=== PATIENT | male | born 1960 | race Two or more races ===

== ENCOUNTER → 2020-07-19 08:08 | Outpatient (BNVA) | payer BC, SELFPAY | PROVIDERS: PCP Internal Medicine; Visit Provider Surgery | DX: Z76.89 Persons encountering health services in other specified circumstances (principal) ==

== ENCOUNTER → 2022-01-02 15:30 | Outpatient (BNVA) | payer BC, SELFPAY | PROVIDERS: PCP Internal Medicine; Referring Provider Internal Medicine; Visit Provider Internal Medicine Cardiovascular Disease | DX: I48.0 Paroxysmal atrial fibrillation (principal); R06.00 Dyspnea, unspecified; E66.01 Morbid (severe) obesity due to excess calories | CPT/HCPCS: 93005 ==

== ENCOUNTER → 2022-01-18 07:35 | Outpatient (REF) | payer BC, SELFPAY ==
--- NOTE | 2022-01-18 07:50 | CA_ITS ---
Transthoracic Echocardiogram Patient (Last, First, Middle): Matias Gunderson E Gender: Male Date of : 1960 Age: 61 Procedure Date: 01/18/2022 Procedure Type: Transthoracic Echocardiogram Location: OP Height: 185.42 cm Weight: 212.28 kg BSA: 3.09 m2 Heart Rate: bpm BP: 138 / 82 mmHg Immunohematologist: Referring MD: Sam Crowe MD Bundle Tier And Labeler: Sam Crowe MD Symptoms: I48.0 - Paroxysmal atrial fibrillation Study Quality: Fair ECG Rhythm: Sinus Conclusions: - Technically limited study. - Normal left ventricular cavity size. There is mildly increased left ventricular wall thickness. The left ventricular systolic function is low normal. The visually estimated ejection fraction is between 50-55%. - RV visualized in limited views and appears to have normal size and function. - The left atrium is mildly dilated. - There is mild dilatation of the ascending aorta measuring 4.00 cm. Findings Procedure Information Contrast agent, definity, is being given per protocol without apparent complications. Left Ventricle Normal left ventricular cavity size. There is mildly increased left ventricular wall thickness. The left ventricular systolic function is low normal. The visually estimated ejection fraction is between 50-55%. There is no evidence of regional wall motion abnormalities. Diastolic function is indeterminate on the basis of available data. Right Ventricle RV visualized in limited views and appears to have normal size and function. Atria The left atrium is mildly dilated. Aortic Valve The aortic valve was not well visualized. There is no aortic valve stenosis. There is no aortic valve regurgitation. Mitral Valve Likely normal mitral valve structure and function. There is no mitral valve regurgitation. There is no mitral valve stenosis. Pulmonic Valve The pulmonic valve was not well visualized. Tricuspid Valve The tricuspid valve was not well visualized. Tricuspid regurgitation envelope is inadequate for calculation of right ventricular systolic pressure. Moderately elevated right atrial pressure. Great Vessels The pulmonary artery was not well visualized. There is mild dilatation of the ascending aorta measuring 4.00 cm. Venous The inferior vena cava is dilated and collapses less than 50% with inspiration. Pericardium/Pleural There is no evidence of pericardial effusion. Measurements 2D Linear Measurements IVSd: 1.38 0.6-0.9/0.6-1.0 cm LVIDd: 4.33 3.9-5.3/4.2-5.9 cm LVIDd Index: 1.40 2.4-3.2/2.2-3.1 cm/m2 LVIDs: 2.67 2.0-3.6 cm LVPWd: 1.38 0.7-1.1 cm Ao Root: 4.10 2.1-3.5 cm LA Diam: 6.10 2.7-3.8/3.0-4.0 cm LAIDs Index: 1.97 1.5-2.3 cm/m2 LV Mass: 286.23 67-162/88-224 g LV Mass Index: 92.63 43-95/49-115 g/m2 LVOT Diam: 2.60 3.0+(-)1.3 cm 2D Systolic Function EF 4C: 42.60 >55% EF 2C: 11.10 >55% Mitral Valve MV Pk E: 0.77 MV Decel Time: 103.00 E'Lateral: 8.92 E'Medial: 7.83 E/E' Med: 9.80 E/E' Lat: 8.60 PHT: 30.00 MVA PHT: 7.33 Decel Tompkins: 7.49 Aortic Valve AoV Pk Jet: 1.15 AoV Mn Jet: 0.84 AoV VTI: 0.20 AoV Pk Grad: 5.00 Aov Mn Grad: 3.00 BRIAN Cont.VTI: 3.35 LVOT LVOT Pk Jet: 0.86 LVOT Mn Jet: 0.62 LVOT VTI: 0.13 LVOT Pk Grad: 3.00 LVOT Mn Grad: 2.00 LVOT Diam: 2.60 LVOT Area: 5.31 Diastolic Function MV Pk E: 0.77 E'Medial: 7.83 E/E' Med: 9.80 E' Laterial: 8.92 E/E' Lat: 8.60 Tricuspid Valve TR Pk Jet: 2.14 TR Pk Grad: 18.00 Great Vessels Aorta Ao Root-2D: 4.10 2.0-3.7 cm Ao Asc: 4.00 2.1-3.4 cm Pulmonary Valve PV Pk Jet: 0.94 Peak PV Grad: 4.00 Updated in Other Vendor System with Status of Final Sam Crowe MD electronically signed on 01/21/2022 2:55:50 PM with status of Final
== END ==
LOC: HO.CARD 07:35
PROVIDERS: PCP Internal Medicine; Visit Provider Internal Medicine Cardiovascular Disease
DX: I48.0 Paroxysmal atrial fibrillation (principal)
CPT/HCPCS: 93306; Q9957

== ENCOUNTER → 2022-04-22 14:20 | Outpatient (BNVA) | payer BC, SELFPAY | PROVIDERS: PCP Internal Medicine; Referring Provider Internal Medicine; Visit Provider Internal Medicine Cardiovascular Disease | DX: R06.00 Dyspnea, unspecified (principal); I48.0 Paroxysmal atrial fibrillation | CPT/HCPCS: 93005 ==

== ENCOUNTER 2022-05-03 11:51 | Outpatient (REF) | payer BC, SELFPAY ==
[2022-05-03 14:01] LABS: Anion Gap 16 (12-20); Blood Urea Nitrogen 14 mg/dL (9-16); Calcium 9.5 mg/dL (8.4-10.2); Carbon Dioxide 27 mmol/L (22-29); Chloride 103 mmol/L (96-108); Estimated Glomerular Filt Rate > 60; Glucose Random 122 mg/dL (60-115); Potassium 4.9 mmol/L (3.3-5.1); Sodium 141 mmol/L (135-145)
[2022-05-03 14:18] LABS: Appearance Urine Turbid; Color Urine Dark Yellow; Glucose Urine UA Negative (Negative); Leukocyte Esterase Urine Small (1+) (Negative); Nitrite Urine Positive (Negative); PH 5.5 (5.0-9.0); Specific Gravity - Urine 1.025 (1.005-1.025); Urine Blood Large (3+) (Negative); Urine Ketones Negative (Negative); Urine Protein 100 (2+) mg/dL (Neg-Trace)
[2022-05-03 14:23] LABS: Bacteria Urine 1+ (None Seen); Hyaline Casts Urine 0-2 /LPF (0-2); RBC Urine >20 /HPF (0-2); Squamous Epithelial Cell Urine 0-2 /HPF (0-2)
[2022-05-03 14:31] LABS: UACC Culture Trigger NO
== END 2022-05-03 11:52 | disposition home or self-care (01) ==
LOC: HO.HMGCLDS 11:51
PROVIDERS: PCP Internal Medicine; Visit Provider Internal Medicine Cardiovascular Disease
DX: R39.9 Unspecified symptoms and signs involving the genitourinary system (principal); I48.0 Paroxysmal atrial fibrillation
CPT/HCPCS: 36415; 80048; 81001

== ENCOUNTER 2022-06-10 11:00 | Day surgery (SDC) | payer BC, SELFPAY ==
[2022-06-04 15:31] VITALS: BMI 61.4
--- NOTE | 2022-06-07 10:24 | HO.ANESPROP2 ---
Documented by User: Farnaz Gudino NP 06/07/22 10:26 HPI - Anesthesia Eval Consult details Narrative: 62yo M for Cardioversion Eliquis for afib PMFSH Active Problems Active Problems: All Active Problems (Updated 06/04/22 @ 15:33 by Dulce Sanchez RN) PAF (paroxysmal atrial fibrillation) (Acute) Dyspnea (Acute) Urinary anomaly (Acute) UTI symptoms (Acute) Morbid obesity (Acute) Past Medical History Medical History Former cigarette smoker Morbid obesity PAF (paroxysmal atrial fibrillation) Family History Family History Father Prostate cancer Heart problem Mother Melanoma Sister No problems noted. Sister No problems noted. Daughter No problems noted. Daughter No problems noted. Surgical History Surgical History History of back surgery Hx of colonoscopy Hx of varicose vein ligation and stripping Social History Social History Alcohol intake: current Alcohol intake frequency: a few times a week Alcohol type: hard liquor Patient Tobacco Use Status: Former Tobacco user Quit Date: 2011 Years Smoked: 30+/- Use of substances other than those prescribed or required for medical reasons: No Are you DNR?: No Advance Directives: No Advance Directives Information Provided: Yes Advance Directives on File: No Meds Allergies Allergy/AdvReac Type Severity Reaction Status Date / Time varenicline [From Chantix] Allergy Severe suicidal Verified 06/04/22 15:31 thoughts Home Medications Medication Instructions Recorded Confirmed Last Taken Type metoprolol succinate 50 mg 50 mg PO DAILY 01/02/22 06/04/22 Unknown History tablet,extended release 24 hr valsartan 160 mg tablet 160 mg PO DAILY 01/02/22 06/04/22 Unknown History Exam Exam Date and Time: June 07, 2022 1024 Height,Weight and Vital Signs: Height 6 ft 1 in Weight 211.4 kg Pertinent Lab Results Pertinent Lab Results: Laboratory Tests 05/03/22 11:55 Sodium 141 Potassium 4.9 Chloride 103 Carbon Dioxide 27 BUN 14 Creatinine 0.94 Narrative Narrative: EKG 03/2022 Atrial fibrillation 104 beats per minute, nonspecific T-wave changes, QTC interval 452 milliseconds ECHO 12/2021 Conclusions: - ? Technically limited study. ? - Normal left ventricular cavity size.? There is mildly increased left ventricular wall thickness.? The left ventricular systolic? function is low normal.? The visually estimated ejection fraction is between 50-55%. ? - RV visualized in limited views and appears to have normal size and function.? - The left atrium is mildly dilated. ? - There is mild dilatation of the ascending aorta measuring 4.00 cm.? Assessment and Plan Assessment Anesthesia Assessment: Chart Reviewed Documented by User: Henry Clark MD 06/10/22 12:11 [facility] Past Medical History Medical History Former cigarette smoker Morbid obesity PAF (paroxysmal atrial fibrillation) Family History Family History Father Prostate cancer Heart problem Mother Melanoma Sister No problems noted. Sister No problems noted. Daughter No problems noted. Daughter No problems noted. Family history of problems with anesthesia: No Surgical History Surgical History History of back surgery Hx of colonoscopy Hx of varicose vein ligation and stripping History of Problems with Anesthesia: No Social History Social History Alcohol intake: current Alcohol intake frequency: a few times a week Alcohol type: hard liquor Patient Tobacco Use Status: Former Tobacco user Quit Date: 2011 Years Smoked: 30+/- Use of substances other than those prescribed or required for medical reasons: No Are you DNR?: No Advance Directives: No Advance Directives Information Provided: Yes Advance Directives on File: No Meds Allergies Allergy/AdvReac Type Severity Reaction Status Date / Time varenicline [From Chantix] Allergy Severe suicidal Verified 06/04/22 15:31 thoughts Home Medications Medication Instructions Recorded Confirmed Last Taken Type metoprolol succinate 50 mg 50 mg PO DAILY 01/02/22 06/04/22 Unknown History tablet,extended release 24 hr valsartan 160 mg tablet 160 mg PO DAILY 01/02/22 06/04/22 Unknown History Exam Airway Mallampati Class: III TM Dist: >3cm Neck ROM: Full Loose/Missing/Broken Teeth: No Heart: rrr Lungs: clear Assessment and Plan Final Anesthetic Review Family History of Problems with Anesthesia: No History of Problems with Anesthesia: No NPO: Yes ASA Class: III Final Preanesthetic Review: No Changes in Pt Med Stat, Meds/Allgs Chart Reviewed, Consent Obtained/Reviewed and Anes Risks/Benef Reviewed Patient Risk: High Procedure Risk: Low Anesthetic Plan Anesthetic Plan: MAC: Disposition: Standard PACU
--- NOTE | 2022-06-10 | ECG_ITS ---
Test Reason : s/p cardioversion Blood Pressure : / mmHG Vent. Rate : 083 BPM Atrial Rate : 083 BPM P-R Int : 166 ms QRS Dur : 086 ms QT Int : 386 ms P-R-T Axes : 042 -21 033 degrees QTc Int : 453 ms Poor data quality, interpretation may be adversely affected Normal sinus rhythm Nonspecific ST abnormality Abnormal ECG When compared with ECG of 15-MAR-2009 09:35, No significant change was found Referred By: Sam Crowe Electronically Signed By:
[2022-06-10 11:13] VITALS: BP 129/80; PULSE 113; RESP 18; TEMP 36.6; O2SAT 96
[2022-06-10] MEDS: Lactated Ringers 1,000 ML 100 ML IVCONT (11:32)
[2022-06-10 12:34] VITALS: BP 124/80; PULSE 84; RESP 21; TEMP 37.3; O2SAT 98
[2022-06-10 12:39] VITALS: BP 110/60; PULSE 82; RESP 18; O2SAT 98
[2022-06-10 12:44] VITALS: BP 108/68; PULSE 81; RESP 18; O2SAT 95
--- NOTE | 2022-06-10 12:48 | P.PNCAR_ITS ---
Cardioversion Procedure Note Cardioversion Date of Procedure: 06/10/22 Ordering Provider: Sam Crowe Performing Provider: Sam Crowe Indication for Procedure: Afib Performed with Transesophageal Echo: No History: 62 male with Afib and WORKMAN. Here for cardioversion. Consent: Verbal and Written consent was obtained from the patient before starting. The patient was made aware of the risk of aspiration, failure and stroke. Procedure: After consent obtained, defib pads were attached and the patient was sedated by the anesthesia team. Once adequate sedation achieved, 200 J synchronized c ardioversion was performed. Patient converted to sinus rhythm. EKG was done for documentation. Complications: None Impression: Successful cardioversion Recommendations: Continue Apixaban. Continue Metoprolol. Stop the Digoxin. Adding 100 mg BID Flecainide. 7 Day Holter monitor.
[2022-06-10 12:49] VITALS: BP 105/69; PULSE 81; RESP 18; O2SAT 94
[2022-06-10 13:04] VITALS: BP 110/75; PULSE 74; RESP 18; TEMP 37; O2SAT 96
== END 2022-06-10 13:20 | disposition home or self-care (01) ==
PROVIDERS: PCP Internal Medicine; Visit Provider Internal Medicine Cardiovascular Disease
PROC: 5A2204Z Restoration of Cardiac Rhythm, Single (ICD-10-PCS; principal; 2022-06-10 12:00)
DX: I48.0 Paroxysmal atrial fibrillation (principal); R06.00 Dyspnea, unspecified; E66.01 Morbid (severe) obesity due to excess calories; Z68.44 Body mass index [BMI] 60.0-69.9, adult; Z79.899 Other long term (current) drug therapy; Z88.8 Allergy status to other drugs, medicaments and biological substances; Z87.891 Personal history of nicotine dependence
CPT/HCPCS: 92960; 93005

== ENCOUNTER 2022-06-13 12:39 | Outpatient (REF) | payer BC, SELFPAY ==
[2022-06-13 14:05] LABS: Appearance Urine Clear; Color Urine Dark Yellow; Glucose Urine UA Negative (Negative); Leukocyte Esterase Urine Negative (Negative); Nitrite Urine Negative (Negative); PH 5.5 (5.0-9.0); UMIC TRIGGER UACC YES; Urine Blood Moderate (2+) (Negative); Urine Ketones Negative (Negative); Urine Protein Negative (Neg-Trace)
[2022-06-13 14:38] LABS: Bacteria Urine None Seen (None Seen); Hyaline Casts Urine 0-2 /LPF (0-2); RBC Urine >20 /HPF (0-2); Squamous Epithelial Cell Urine 0-2 /HPF (0-2); WBC Urine 0-5 /HPF (0-5)
== END 2022-06-13 12:40 | disposition home or self-care (01) ==
LOC: HO.HMGCLDS 12:39
PROVIDERS: PCP Internal Medicine; Visit Provider Internal Medicine
DX: R30.0 Dysuria (principal)
CPT/HCPCS: 81001; 81003

== ENCOUNTER 2022-06-24 11:35 | Outpatient (REF) | payer BC, SELFPAY ==
[2022-06-24 13:54] LABS: MANUAL DIFF FLAG NO
[2022-06-24 14:04] LABS: Basophils Absolute Auto 0.1 X10*3/uL (0.0-0.2); Basophils Percent Auto 1.1 % (0-2); Eosinophils Absolute Auto 0.6 X10*3/uL (0.0-0.4); Eosinophils Percent Auto 5.8 % (0-4); Hematocrit 46.9 % (42.0-52.0); Hemoglobin 16.1 g/dl (14.0-18.0); Imm Gran Abs Auto 0.03 X10*3/uL (0.00-0.03); Imm Gran Pct Auto 0.3 % (0.0-0.4); Lymphocytes Absolute Auto 1.1 X10*3/uL (1.2-4.9); Lymphocytes Percent Auto 11.7 % (20-40); Mean Corpuscular HGB Conc 34.3 g/dl (31.0-36.0); Mean Corpuscular Hemoglobin 33.5 pg (27.0-33.0); Mean Corpuscular Volume 97.7 fL (80.0-98.0); Mean Platelet Volume 11.4 fL (9.4-12.4); Monocytes Absolute Auto 0.5 X10*3/uL (0.1-1.2); Monocytes Percent Auto 5.5 % (2-11); Neutrophils Absolute Auto 7.2 x10*3/uL (2.0-8.3); Neutrophils Percent Auto 75.6 % (45-73); Platelet Count 296 X10*3/uL (160-400); Red Cell Distribution Width 14.3 % (11.0-16.0); White Blood Count 9.5 X10*3/uL (4.8-10.8)
[2022-06-24 14:19] LABS: Alanine Aminotransferase 41 U/L (0-40); Albumin Level 4.1 g/dL (3.5-5.0); Alkaline Phosphatase 103 U/L (39-117); Anion Gap 13 (12-20); Aspartate Amino Transferase 26 U/L (5-37); Bilirubin Total 1.3 mg/dL (0.0-1.0); Blood Urea Nitrogen 17 mg/dL (9-16); Calcium 9.8 mg/dL (8.4-10.2); Carbon Dioxide 28 mmol/L (22-29); Chloride 102 mmol/L (96-108); Estimated Average Glucose 103 mg/dL; Estimated Glomerular Filt Rate > 60; Glucose Fasting 121 mg/dL (60-99); Hemoglobin A1c % 5.2 %; Potassium 4.6 mmol/L (3.3-5.1); Sodium 138 mmol/L (135-145); Total Protein 6.9 g/dL (6.5-8.0)
[2022-06-24 14:40] LABS: Cortisol Random 7.7 ug/dL
== END 2022-06-24 11:36 | disposition home or self-care (01) ==
LOC: HO.HMGCLDS 11:35
PROVIDERS: PCP Internal Medicine; Visit Provider Internal Medicine
DX: I10 Essential (primary) hypertension (principal); E66.01 Morbid (severe) obesity due to excess calories; R73.01 Impaired fasting glucose
CPT/HCPCS: 36415; 80053; 82533; 83036; 83735; 85025

== ENCOUNTER → 2022-07-29 10:57 | Outpatient (REF) | payer BC, SELFPAY ==
--- NOTE | 2022-07-29 11:03 | HM_ITS ---
Conclusion: 1. Patient was monitored for total period of 7 days 2. Baseline was normal sinus rhythm with average heart of 69 beats per minute 3. No significant pauses or bradycardia noted 4. Total of 3208 PACs accounting for 0.5% total beats account for occasional PACs 5. Two 4 beat runs of SVT, fastest at 147 beats per minute 6. No patient reported events MTDD
== END ==
LOC: HO.CARD 10:57
PROVIDERS: PCP Internal Medicine; Visit Provider Internal Medicine Cardiovascular Disease
DX: I48.0 Paroxysmal atrial fibrillation (principal)
CPT/HCPCS: 93242

== ENCOUNTER → 2022-08-05 13:06 | Outpatient (BNVA) | payer BC, SELFPAY | PROVIDERS: PCP Internal Medicine; Visit Provider Internal Medicine Cardiovascular Disease | DX: I48.0 Paroxysmal atrial fibrillation (principal) | CPT/HCPCS: 93005 ==

== ENCOUNTER → 2022-12-02 13:37 | Outpatient (BNVA) | payer BC, SELFPAY | PROVIDERS: PCP Internal Medicine; Referring Provider Internal Medicine; Visit Provider Internal Medicine Cardiovascular Disease | DX: I48.0 Paroxysmal atrial fibrillation (principal) | CPT/HCPCS: 93005 ==

== ENCOUNTER 2023-06-09 13:30 | Outpatient (AMB) | payer BC, SELFPAY ==
[2023-06-09 13:37] VITALS: BP 138/84; PULSE 76; BMI 62.2
--- NOTE | 2023-06-09 13:37 | A.OFFVIS_ITS ---
Intake Vital Signs 06/09/23 13:37 Height 6 ft 1 in Weight 471 lb 12.627 oz BMI 62.2 BP 138/84 Blood Pressure Location Lt brachial Position Sitting Pulse 76 Intake Visit Reasons: 6 mth fu Intake Note: 6 month follow-up has been in [facility] a few times for DVT Campus Recruiting Coordinator Required: No Allergies varenicline [From Chantix] Allergy (Severe, Verified 12/02/22 13:44) suicidal thoughts Medication List - Last Reconciled 06/09/23 by Sam Crowe MD fondaparinux mg subcut metoprolol succinate ER 50 mg PO DAILY valsartan 160 mg PO DAILY HPI HPI Comments History of Present Illness Details 63-year-old gentleman with hypertension and morbid obesity here for follow-up. He underwent cardioversion in May for paroxysmal atrial fibrillation. He has morbid obesity and has WORKMAN which is mostly due to obesity. Post cardioversion he has minimal change in dyspnea. He is off the Apixaban and Flecainide at this stage. ECG in the office is showing sinus rhythm. He is planning to see weight management program. 06/09/23: He returns for follow-up. I n February 2023 he had left lower extremity redness and swelling. He went to the emergency department because he has subsequently developed shortness of breath. He was diagnosed with bilateral pulmonary emboli. He was taking apixaban at that time. He said he had workup done at [facility] and also saw Hematology and was changed to fondaparinux. [facility] Medical History (Updated 06/09/23 @ 19:08 by Sam Crowe MD) History of cardioversion Former cigarette smoker PAF (paroxysmal atrial fibrillation) Morbid obesity Surgical History History of back surgery Hx of colonoscopy Hx of varicose vein ligation and stripping Family History Father Prostate cancer Heart problem Mother Melanoma Sister No problems noted. Sister No problems noted. Daughter No problems noted. Daughter No problems noted. Social History Alcohol intake: current Alcohol intake frequency: a few times a week Alcohol type: hard liquor Patient Tobacco Use Status: Former Tobacco user Quit Date: 2012 Years Smoked: 30+/- Review of Systems Const Denies chills, Denies fatigue, Denies fever(s), Denies frequent falls, Denies weakness, Denies weight gain and Denies weight loss ENT Denies dizziness Card Denies chest pain, Denies leg edema, Denies lightheadedness, Denies palpitations, Denies dyspnea, Denies dyspnea on exertion, Denies orthopnea and Denies other (loss of consciousness) Resp Denies cough, Denies dyspnea and Denies dyspnea on exertion GI Denies hematochezia and Denies change in stool character Musc Denies abnormal gait, Denies muscle weakness, Denies numbness, Denies radiating pain into limb and Denies tingling Neuro Denies abnormal gait, Denies dizziness, Denies frequent falls, Denies numbness, Denies tingling and Denies weakness Endo Denies fatigue and Denies palpitations Physical Exam Vital Signs: Last Vital Signs Pulse 76 06/09/23 13:37 BP 138/84 06/09/23 13:37 BMI result Body Mass Index 62.2 GENERAL APPEARANCE: in no acute distress, pleasant. NECK: no carotid bruit. SKIN: no suspicious lesions, warm and dry. HEART: no murmurs, regular rate and rhythm. LUNGS: clear to auscultation bilaterally. ABDOMEN: soft, nontender. EXTREMITIES: no edema. PERIPHERAL PULSES: equal. NEUROLOGIC: No gross deficits, AAO X 3 Assessment & Plan Assessment & Plan (1) PAF (paroxysmal atrial fibrillation): Code(s): I48.0 - Paroxysmal atrial fibrillation (2) Thromboembolism: Code(s): I74.9 - Embolism and thrombosis of unspecified artery Plan 63-year-old gentleman who has background history of paroxysmal atrial fibrillation for which she was cardioverted. He did not have any significant improvement in his symptoms and subsequently was stop the flecainide. plan was that he will finish 6 weeks of flecainide after cardioversion it appears he developed lower extremity swelling and redness and subsequently developed bilateral pulmonary embolism while taking Eliquis. He was admitted at [facility] and was seen by Hematology. He was changed to fondaparinux. He is still taking fondaparinux. The duration of Therapy is unknown. He will be following with Hematology. In sinus rhythm currently. We discussed about weight loss and he still plans to undergo bariatric surgery. Thank you for allowing me to participate in the care of your patient. Please feel free to contact me if you have any questions. Coding Level of Care Code Est Pt Level 4 (88720) Diagnoses PAF (paroxysmal atrial fibrillation) I48.0 Thromboembolism I74.9
== END 2023-06-09 14:19 | disposition home or self-care (01) ==
PROVIDERS: PCP Internal Medicine; Visit Provider Internal Medicine Cardiovascular Disease
DX: I48.0 Paroxysmal atrial fibrillation (principal); I74.9 Embolism and thrombosis of unspecified artery
CPT/HCPCS: 99214

== ENCOUNTER → 2023-06-09 13:30 | Outpatient (BNVA) | payer BC, SELFPAY | PROVIDERS: PCP Internal Medicine; Visit Provider Internal Medicine Cardiovascular Disease ==

== ENCOUNTER 2023-07-02 14:00 | Outpatient (REF) | payer BC, SELFPAY | END 2023-07-02 14:01 | disposition home or self-care (01) | LOC: HO.BBR 14:00 | PROVIDERS: PCP Internal Medicine; Visit Provider Internal Medicine | DX: D45 Polycythemia vera (principal) | CPT/HCPCS: 85014; 85018; 99195 ==

== ENCOUNTER 2023-07-16 13:53 | Outpatient (REF) | payer BC, SELFPAY | END 2023-07-16 13:54 | disposition home or self-care (01) | LOC: HO.BBR 13:53 | PROVIDERS: PCP Internal Medicine; Visit Provider Internal Medicine | DX: D45 Polycythemia vera (principal) | CPT/HCPCS: 85014; 85018; 99195 ==

== ENCOUNTER 2023-07-25 08:45 | Outpatient (REF) | payer BC, SELFPAY ==
[2023-07-25 11:22] LABS: MANUAL DIFF FLAG NO
[2023-07-25 11:43] LABS: Estimated Average Glucose 108 mg/dL; Hemoglobin A1c % 5.4 % (<6.0)
[2023-07-25 11:53] LABS: Basophils Absolute Auto 0.1 X10*3/uL (0.0-0.2); Basophils Percent Auto 1.1 % (0-2); Eosinophils Absolute Auto 0.5 X10*3/uL (0.0-0.4); Eosinophils Percent Auto 4.4 % (0-4); Hemoglobin 18.1 g/dl (14.0-18.0); Imm Gran Abs Auto 0.08 X10*3/uL (0.00-0.03); Imm Gran Pct Auto 0.7 % (0.0-0.4); Lymphocytes Absolute Auto 1.1 X10*3/uL (1.2-4.9); Lymphocytes Percent Auto 9.7 % (20-40); Mean Corpuscular HGB Conc 34.2 g/dl (31.0-36.0); Mean Corpuscular Hemoglobin 33.6 pg (27.0-33.0); Mean Corpuscular Volume 98.3 fL (80.0-98.0); Mean Platelet Volume 11.4 fL (9.4-12.4); Monocytes Absolute Auto 0.6 X10*3/uL (0.1-1.2); Monocytes Percent Auto 5.6 % (2-11); Neutrophils Absolute Auto 8.7 x10*3/uL (2.0-8.3); Neutrophils Percent Auto 78.5 % (45-73); Platelet Count 279 X10*3/uL (160-400); Red Blood Count 5.39 X10*6/uL (4.60-5.80); Red Cell Distribution Width 16.6 % (11.0-16.0); White Blood Count 11.1 X10*3/uL (4.8-10.8)
[2023-07-25 12:03] LABS: Alanine Aminotransferase 171 U/L (0-40); Albumin Level 4.2 g/dL (3.5-5.0); Alkaline Phosphatase 110 U/L (39-117); Anion Gap 13 (12-20); Aspartate Amino Transferase 125 U/L (5-37); Bilirubin Total 1.6 mg/dL (0.0-1.0); Blood Urea Nitrogen 19 mg/dL (9-16); Calcium 9.9 mg/dL (8.4-10.2); Carbon Dioxide 25 mmol/L (22-29); Chloride 104 mmol/L (96-108); Estimated Glomerular Filt Rate > 60; Glucose Random 130 mg/dL (60-115); Potassium 4.5 mmol/L (3.3-5.1); Sodium 137 mmol/L (135-145); Total Protein 7.6 g/dL (6.5-8.0)
[2023-07-25 12:18] LABS: HBsAGNum1 0.46 S/CO (0.00-0.99); Hepatitis B Surface Antigen Negative (Negative); ~HepC Num1 0.11 S/CO (0.00-0.79); ~Hepatitis C Antibody Nonreactive (Nonreactive)
== END 2023-07-25 08:46 | disposition home or self-care (01) ==
LOC: HO.HMGCLDS 08:45
PROVIDERS: PCP Internal Medicine; Visit Provider Internal Medicine
DX: D45 Polycythemia vera (principal); E66.01 Morbid (severe) obesity due to excess calories; Z68.44 Body mass index [BMI] 60.0-69.9, adult; R94.5 Abnormal results of liver function studies; I10 Essential (primary) hypertension; R73.01 Impaired fasting glucose
CPT/HCPCS: 36415; 80053; 83036; 85025; 86803; 87340

== ENCOUNTER 2023-08-04 13:57 | Outpatient (REF) | payer BC, SELFPAY | END 2023-08-04 13:58 | disposition home or self-care (01) | LOC: HO.BBR 13:57 | PROVIDERS: PCP Internal Medicine; Visit Provider Internal Medicine | DX: D45 Polycythemia vera (principal) | CPT/HCPCS: 85014; 85018; 99195 ==

== ENCOUNTER 2023-08-19 10:58 | Outpatient (REF) | payer BC, SELFPAY | END 2023-08-19 10:59 | disposition home or self-care (01) | LOC: HO.BBR 10:58 | PROVIDERS: PCP Internal Medicine; Visit Provider Internal Medicine | DX: D45 Polycythemia vera (principal) | CPT/HCPCS: 85014; 85018; 99195 ==

== ENCOUNTER 2023-08-19 11:06 | Outpatient (REF) | payer BC, SELFPAY ==
[2023-08-19 11:24] LABS: MANUAL DIFF FLAG NO
[2023-08-19 11:26] LABS: Basophils Absolute Auto 0.1 X10*3/uL (0.0-0.2); Basophils Percent Auto 1.2 % (0-2); Eosinophils Absolute Auto 0.5 X10*3/uL (0.0-0.4); Eosinophils Percent Auto 5.6 % (0-4); Hematocrit 48.1 % (42.0-52.0); Hemoglobin 16.5 g/dl (14.0-18.0); Imm Gran Abs Auto 0.06 X10*3/uL (0.00-0.03); Imm Gran Pct Auto 0.7 % (0.0-0.4); Lymphocytes Percent Auto 11.2 % (20-40); Mean Corpuscular HGB Conc 34.3 g/dl (31.0-36.0); Mean Corpuscular Volume 99.2 fL (80.0-98.0); Mean Platelet Volume 10.9 fL (9.4-12.4); Monocytes Absolute Auto 0.5 X10*3/uL (0.1-1.2); Monocytes Percent Auto 5.5 % (2-11); Neutrophils Absolute Auto 6.9 x10*3/uL (2.0-8.3); Neutrophils Percent Auto 75.8 % (45-73); Platelet Count 253 X10*3/uL (160-400); Red Blood Count 4.85 X10*6/uL (4.60-5.80); Red Cell Distribution Width 15.4 % (11.0-16.0); White Blood Count 9.1 X10*3/uL (4.8-10.8)
[2023-08-19 11:55] LABS: Alanine Aminotransferase 86 U/L (0-40); Albumin Level 3.7 g/dL (3.5-5.0); Alkaline Phosphatase 96 U/L (39-117); Anion Gap 12 (12-20); Aspartate Amino Transferase 62 U/L (5-37); Bilirubin Total 1.2 mg/dL (0.0-1.0); Blood Urea Nitrogen 14 mg/dL (9-16); Calcium 8.9 mg/dL (8.4-10.2); Carbon Dioxide 25 mmol/L (22-29); Chloride 106 mmol/L (96-108); Estimated Glomerular Filt Rate > 60; Glucose Random 131 mg/dL (60-115); Sodium 139 mmol/L (135-145); Total Protein 6.7 g/dL (6.5-8.0)
== END 2023-08-19 11:07 | disposition home or self-care (01) ==
LOC: HO.LNP 11:06
PROVIDERS: Visit Provider Internal Medicine
DX: D45 Polycythemia vera (principal); R94.5 Abnormal results of liver function studies; I10 Essential (primary) hypertension
CPT/HCPCS: 80053; 85025

== ENCOUNTER 2023-09-01 13:44 | Outpatient (REF) | payer BC, SELFPAY | END 2023-09-01 13:45 | disposition home or self-care (01) | LOC: HO.BBR 13:44 | PROVIDERS: PCP Internal Medicine; Visit Provider Internal Medicine | DX: D45 Polycythemia vera (principal) | CPT/HCPCS: 85014 ==

== ENCOUNTER 2023-09-15 11:58 | Outpatient (REF) | payer BC, SELFPAY | END 2023-09-15 11:59 | disposition home or self-care (01) | LOC: HO.BBR 11:58 | PROVIDERS: PCP Internal Medicine; Visit Provider Internal Medicine | DX: D45 Polycythemia vera (principal) | CPT/HCPCS: 85014; 85018; 99195 ==

== ENCOUNTER 2023-10-20 11:58 | Outpatient (REF) | payer BC, SELFPAY | END 2023-10-20 11:59 | disposition home or self-care (01) | LOC: HO.BBR 11:58 | PROVIDERS: PCP Internal Medicine; Visit Provider Internal Medicine | DX: D45 Polycythemia vera (principal) | CPT/HCPCS: 85014; 85018; 99195 ==

== ENCOUNTER 2023-11-03 11:04 | Outpatient (REF) | payer BC, SELFPAY | END 2023-11-03 11:05 | disposition home or self-care (01) | LOC: HO.BBR 11:04 | PROVIDERS: PCP Internal Medicine; Visit Provider Internal Medicine | DX: D45 Polycythemia vera (principal) | CPT/HCPCS: 85014; 85018; 99195 ==

== ENCOUNTER 2023-11-17 11:10 | Outpatient (REF) | payer BC, SELFPAY | END 2023-11-17 11:11 | disposition home or self-care (01) | LOC: HO.BBR 11:10 | PROVIDERS: PCP Internal Medicine; Visit Provider Internal Medicine | DX: D45 Polycythemia vera (principal) | CPT/HCPCS: 85014; 85018; 99195 ==

== ENCOUNTER 2023-12-01 13:49 | Outpatient (REF) | payer BC, SELFPAY | END 2023-12-01 13:50 | disposition home or self-care (01) | LOC: HO.BBR 13:49 | PROVIDERS: PCP Internal Medicine; Visit Provider Internal Medicine | DX: D45 Polycythemia vera (principal) | CPT/HCPCS: 85014; 99195 ==

== ENCOUNTER 2023-12-15 14:06 | Outpatient (REF) | payer BC, SELFPAY | END 2023-12-15 14:07 | disposition home or self-care (01) | LOC: HO.BBR 14:06 | PROVIDERS: PCP Internal Medicine; Visit Provider Internal Medicine | DX: D45 Polycythemia vera (principal) | CPT/HCPCS: 85014; 99195 ==

== ENCOUNTER 2024-01-26 10:56 | Outpatient (REF) | payer BC, SELFPAY | END 2024-01-26 10:57 | disposition home or self-care (01) | LOC: HO.BBR 10:56 | PROVIDERS: PCP Internal Medicine; Visit Provider Internal Medicine | DX: D45 Polycythemia vera (principal) | CPT/HCPCS: 85014; 85018; 99195 ==

== ENCOUNTER 2024-02-02 14:14 | Outpatient (AMB) | payer BC, SELFPAY ==
[2024-02-02 14:17] VITALS: BP 120/80; PULSE 119; BMI 61.0
--- NOTE | 2024-02-02 14:17 | MHC.OFFVIS ---
Vital Signs 02/02/24 14:17 Height 6 ft 1 in Weight 462 lb 8.477 oz BMI 61.0 BP 120/80 Blood Pressure Location Lt radial Position Sitting Pulse 119 H Intake Visit Reasons: 6 mth f/up r/s 12/14 Multicultural Internship Required: No Accompanied by: Self / Same As Patient Allergies varenicline [From Chantix] Allergy (Severe, Verified 12/02/22 13:44) suicidal thoughts Medication List - Last Reconciled 02/02/24 by Sam Crowe MD aspirin (Adult Low Dose Aspirin) 81 mg PO DAILY fondaparinux mg subcut metoprolol succinate ER 50 mg PO DAILY valsartan 160 mg PO DAILY HPI Comments Details: 63-year-old gentleman with hypertension and morbid obesity here for follow-up. He underwent cardioversion in May for paroxysmal atrial fibrillation. He has morbid obesity and has WORKMAN which is mostly due to obesity. Post cardioversion he has minimal change in dyspnea. He is off the Apixaban and Flecainide at this stage. ECG in the office is showing sinus rhythm. He is planning to see weight management program. 06/09/23: He returns for follow-up. In February 2023 he had left lower extremity redness and swelling. He went to the emergency department because he has subsequently developed shortness of breath. He was diagnosed with bilateral pulmonary emboli. He was taking apixaban at that time. He said he had workup done at [facility] and also saw Hematology and was changed to fondaparinux. 02/02/24: He is here for f/u. He has been on Fondaparinux. He is denying any CP or change in his breathing. He has LE edema which fluctuates. He has prominant varicose veins on the legs. He is back in Afib on ECG performed in the office. He is saying he has not felt any meaningful difference in his fatigue or dyspnea. [facility] Medical History (Updated 06/09/23 @ 19:08 by Sam Crowe MD) History of cardioversion Former cigarette smoker PAF (paroxysmal atrial fibrillation) Morbid obesity Surgical History Hx of varicose vein ligation and stripping History of back surgery Hx of colonoscopy Family History Father Prostate cancer Heart problem Mother Melanoma Sister No problems noted. Sister No problems noted. Daughter No problems noted. Daughter No problems noted. Social History Alcohol intake: current Alcohol intake frequency: a few times a week Alcohol type: hard liquor Patient Tobacco Use Status: Former Tobacco user Years Smoked: 30+/- Review of Systems Const Denies chills, Denies fatigue, Denies fever(s), Denies frequent falls, Denies weakness, Denies weight gain and Denies weight loss ENT Denies dizziness Card Denies chest pain, Denies leg edema, Denies lightheadedness, Denies palpitations, Denies dyspnea and Denies dyspnea on exertion Resp Denies cough, Denies dyspnea and Denies dyspnea on exertion GI Denies hematochezia Musc Denies abnormal gait, Denies muscle weakness, Denies numbness, Denies radiating pain into limb and Denies tingling Neuro Denies abnormal gait, Denies dizziness, Denies frequent falls, Denies numbness, Denies tingling and Denies weakness Endo Denies fatigue and Denies palpitations Physical Exam Vital Signs: Last Vital Signs Pulse 119 H 02/02/24 14:17 BP 120/80 02/02/24 14:17 BMI result Body Mass Index 61.0 GENERAL APPEARANCE: in no acute distress, pleasant. NECK: no carotid bruit. SKIN: no suspicious lesions, warm and dry. HEART: no murmurs, irregular rate and rhythm. Tachycardic. LUNGS: clear to auscultation bilaterally. ABDOMEN: soft, nontender. EXTREMITIES: + edema. Prominent varicose veins. PERIPHERAL PULSES: equal. NEUROLOGIC: No gross deficits, AAO X 3 Office Procedures EKG Details: Atrial fibrillation 119 beats per minute, normal axis, QTC 430 milliseconds [id number], Complete Assessment & Plan Assessment & Plan (1) PAF (paroxysmal atrial fibrillation): Code(s): I48.0 - Paroxysmal atrial fibrillation Category: Medical (2) Thromboembolism: Code(s): I74.9 - Embolism and thrombosis of unspecified artery Category: Medical Plan Pleasant 63 male with PAF, morbid obesity and PE. He had PE while taking apixaban and heme/onc has changed him to Fondaparinux. He is back in Afib. Previously cardioversion did not help him symptomatically. check echo to assess LVEF. If cardiomyopathy then will consider cardioversion. Increasing Toprol to BID. f/u 2-3 months. Orders: Orders CA echo transthorac w con Today I48.0 - Paroxysmal atrial fibrillation Medications: New metoprolol succinate ER 50 mg PO BID 120 tabs 4RF Coding Level of Care Code Est Pt Level 5 (76865) Diagnoses PAF (paroxysmal atrial fibrillation) I48.0 Thromboembolism I74.9 CPT Codes EKG - CPT: 43641-[id number], Complete ([id number])
== END 2024-02-02 14:54 | disposition home or self-care (01) ==
PROVIDERS: PCP Internal Medicine; Visit Provider Internal Medicine Cardiovascular Disease
DX: I48.0 Paroxysmal atrial fibrillation (principal); I74.9 Embolism and thrombosis of unspecified artery
CPT/HCPCS: 93010; 99214

== ENCOUNTER → 2024-02-02 14:14 | Outpatient (BNVA) | payer BC, SELFPAY | PROVIDERS: PCP Internal Medicine; Visit Provider Internal Medicine Cardiovascular Disease | DX: I48.0 Paroxysmal atrial fibrillation (principal); I74.9 Embolism and thrombosis of unspecified artery; E66.01 Morbid (severe) obesity due to excess calories | CPT/HCPCS: 93005 ==

== ENCOUNTER 2024-02-09 11:06 | Outpatient (REF) | payer BC, SELFPAY | END 2024-02-09 11:07 | disposition home or self-care (01) | LOC: HO.BBR 11:06 | PROVIDERS: PCP Internal Medicine; Visit Provider Internal Medicine | DX: D45 Polycythemia vera (principal) | CPT/HCPCS: 85014; 85018; 99195 ==

== ENCOUNTER 2024-03-22 14:02 | Outpatient (REF) | payer BC, SELFPAY | END 2024-03-22 14:03 | disposition home or self-care (01) | LOC: HO.BBR 14:02 | PROVIDERS: PCP Internal Medicine; Visit Provider Internal Medicine | DX: D45 Polycythemia vera (principal) | CPT/HCPCS: 85014; 85018; 99195 ==

== ENCOUNTER 2024-04-19 14:09 | Outpatient (REF) | payer BC, SELFPAY | END 2024-04-19 14:10 | disposition home or self-care (01) | LOC: HO.BBR 14:09 | PROVIDERS: PCP Internal Medicine; Visit Provider Internal Medicine | DX: D45 Polycythemia vera (principal) | CPT/HCPCS: 85014; 85018; 99195 ==

== ENCOUNTER 2024-07-06 14:00 | Outpatient (REF) | payer BC, SELFPAY | END 2024-07-06 14:01 | disposition home or self-care (01) | LOC: HO.BBR 14:00 | PROVIDERS: PCP Internal Medicine; Visit Provider Internal Medicine | DX: D72.829 Elevated white blood cell count, unspecified (principal); D69.6 Thrombocytopenia, unspecified | CPT/HCPCS: 85014; 85018; 99195 ==

== ENCOUNTER 2025-01-20 13:02 | Outpatient (REF) | payer BC, SELFPAY ==
[2025-01-21 13:34] LABS: Free Prostate Spec Ag 0.2 ng/mL; Percent Free Prostate Spec Ag 17 % (calc) (>25); Prostate Specific Ag Total 1.2 ng/mL (< OR = 4.0)
== END 2025-01-20 13:03 | disposition home or self-care (01) ==
LOC: HO.HMGCLDS 13:02
PROVIDERS: PCP Internal Medicine; Visit Provider Urology
DX: Z80.42 Family history of malignant neoplasm of prostate (principal); Z12.5 Encounter for screening for malignant neoplasm of prostate
CPT/HCPCS: 36415; 84154

== ENCOUNTER 2025-08-12 14:46 | Outpatient (REF) | payer BC, SELFPAY ==
[2025-08-12 15:06] LABS: MANUAL DIFF FLAG NO
[2025-08-12 15:08] LABS: Hematocrit 47.2 % (42.0-52.0); Hemoglobin 16.7 g/dl (14.0-18.0); Imm Gran Abs Auto 0.03 X10*3/uL (0.00-0.03); Imm Gran Pct Auto 0.3 % (0.0-0.4); Lymphocytes Absolute Auto 1.4 X10*3/uL (1.2-4.9); Mean Corpuscular HGB Conc 35.4 g/dl (31.0-36.0); Mean Corpuscular Hemoglobin 37.1 pg (27.0-33.0); Mean Corpuscular Volume 104.9 fL (80.0-98.0); NRBC Abs Auto 0.000 X10*3/uL (0.0-0.012); NRBC Pct Auto 0.0 /100WBC (0.0-0.2); Platelet Count 275 X10*3/uL (160-400); Red Blood Count 4.50 X10*6/uL (4.60-5.80); White Blood Count 9.3 X10*3/uL (4.8-10.8)
--- OUTSIDE RECORDS SUMMARY | 2025-08-12 16:06 | XMS_ITS | Patient Health Record ---
Author Organization [facility] Address [address] [place] [id number] Care Team Providers Care Hand Leather Trimmer Name Role Phone Alexander Leslie MD Primary Care Provider Tan Abreu Unavailable [phone] Reason For Referral No Information Medications Medication SIG (Take, Route, Frequency, Duration) Notes Start Date End Date Status MoviPrep 100 GM Solution Reconstituted as directed Orally once; Duration: 1 dose 09/10/2011 Active Social History Social History Additional Details Category Social Info Options Details Miscellaneous: Marital status: 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 Section Notes: He does smoke and uses only occasional alcohol Problems Problem Type SNOMED Code ICD Code Onset Dates Problem Status W/U Status Risk Notes Problem Screening for malignant neoplasm of colon (433256206) Special screening for malignant neoplasms, colon (V76.51) Active confirmed Plan Of Treatment Future Test Test Name Order Date COLONOSCOPY 09/10/2011 Insurance Providers Payer Name Payer Address Payer Phone Subscriber Number Group Number Insured Name Patient Relationship to Insured Coverage Start Date Coverage End Date [facility] [address] [place], [place] [id number] Neptali Matias Self - patient is the insured Medical (General) History Medical History History ICD Code Denies HI,DM,CVA,Lung disease,renal dise ase Surgical History Surgery Date(Month/Year) varicose vein surgery
--- OUTSIDE RECORDS SUMMARY | 2025-08-12 16:06 | XMS_ITS | Clinical Summary ---
Author Organization Formerly [facility] Address [address] [place] [address] Phone Care Team Providers Care Technical Training Coordinator Name Role Phone Alexander Leslie MD Unavailable [phone] Alexander Leslie MD Primary Care Provider [phone] Sam Crowe MD Unavailable [phone] Alexander Leslie MD Unavailable [phone] Allergies Active Allergy Reactions Criticality Noted Date Comments Varenicline Other (See Comments) 08/28/2017 Severe depression Enoxaparin Pain,Swelling Low 05/09/2023 Other reaction(s): local edema, pain Heparin Anaphylaxis High 05/10/2023 Lisinopril Cough 10/17/2017 Medications fondaparinux (ARIXTRA) 10 mg/0.8 mL subcutaneous syringe Inject 0.8 mL (10 mg total) under the skin daily. 24 mL 3 3 Active hydroxyurea (HYDREA) 500 mg capsule Take 1,500 mg by mouth daily. Active aspirin 81 mg Cap Take 1 capsule by mouth every morning. 4 Active cholecalciferol (VITAMIN D3) 2,000 unit tablet 4 Active metoprolol succinate (TOPROL-XL) 50 MG 24 hr tabletIndications :Essential hypertension,Atri al fibrillation, unspecified type TAKE 1 TABLET TWICE A DAY 180 tablet 5 Active valsartan (DIOVAN) 80 MG tabletIndications :Benign essential hypertension TAKE 1 TABLET DAILY 90 tablet 5 Active CHROMIUM PICOLINATE ORAL Take 1 capsule by mouth every morning. Active vitamin B complex, vit C no.4 (SUPER B COMPLEX + C ORAL) Take 1 capsule by mouth every morning. Active Active Problems Problem Noted Date Diagnosed Date Polycythemia vera 07/13/2025 Paroxysmal atrial fibrillation 07/13/2025 Acute deep vein thrombosis (DVT) of left lower e xtremity 05/20/2023 Postoperative examination 01/14/2022 Skin lesion of back 12/03/2021 Assessment & Plan (12/03/2021 11:46 AM EDT): This is a 61-year-old gentleman with an abnormal skin lesion of the right upper back that has increased in size over the course of 2 to 3 years. The patient reports that this has been present since the pandemic began and has gotten larger. He has no symptoms from the skin lesion although he can feel it secondary to his position on his back. I am concerned that this is a skin neoplasm. I have recommended the patient have this removed in the operating room. Patient will complete his antibiotics and ibuprofen tomorrow status post a dental implant last week. He will remain off ibuprofen and aspirin for 5 to 7 days prior to this procedure being performed. Risk benefits and alternatives were discussed with the patient he would like to proceed with excisional biopsy of the skin lesion in the right upper lateral back. Obstructive sleep apnea syndrome 11/06/2018 Overview (11/06/2018): Uses BiPAP Hyperlipidemia 08/28/2017 Class 3 severe obesity due t o excess calories with serious comorbidity and body mass index (BMI) of 60.0 to 69.9 in adult 08/28/2017 Assessment & Plan (03/04/2022 1:57 PM EDT): The patient has morbid obesity with comorbidity, atrial fibrillation, he would benefit from weight loss medications. I have prescribed Wegovy 1 mg weekly. He has no contraindications such as pancreatitis, medullary thyroid carcinoma. He was advised that this medication can be associated with nausea, vomiting, diarrhea, constipation. However, we will only know if he is able to tolerate the medication after trying it. I will give him a follow-up appointment in 3 months time. Hypertension 08/28/2017 Encounters Date Type Department Care Team Description 07/13/2025 3:00 PM EST Office Visit [facility] [address] [place] [address] Alexander Leslie MD Routine general medical examination at a health care facility (Primary Dx); Need for shingles vaccine; Need for prophylactic vaccination and inoculation against influenza; Need for Td vaccine; Polycythemia vera; Paroxysmal atrial fibrillation; Screening for prostate cancer; Impaired fasting glucose; Essential hypertension; Macrocytosis; Colon cancer screening; Vitamin D deficiency, unspecified 07/13/2025 Orders Only [facility] Care [facility] [address] [facility] [place] [address] ProviderWaqar MD 07/11/2025 Refill [facility] [address] [facility] [place] [address] Alexander Leslie MD Medication Refill 06/22/2025 Refill [facility] [address] [facility] [place] [address] Shanon Hull PA-C Medication Refill from Last 3 Months Immunizations Immunization Administration Dates Next Due COVID-19 (Pre-06/16) Pfizer Vaccine, mRNA, PF 11/27/2020,11/04/2020 Hepatitis B Adult 01/15/2016,09/06/2015,07/04/20 15 INFLUENZA, SPLIT VIRUS, TRIVALENT PF 07/13/2025 INFLUENZA, SPLIT VIRUS, TRIV ALENT W/ PRESERVATIVE IM 07/09/2021,07/30/2011 Influenza Quadrivalent Prese rvative Free IM 06/19/2023,06/21/2022,06/28/2020,08/06,05/13/2017 Pneumococcal conjugate PCV20 06/21/2022 Pneumococcal polysaccharide PPSV23 07/25/2011, Tdap 07/30/2011 Family History Medical History Relation Comments CV disease Father Prostate cancer Father Stroke Father No Known Problems Mother Prostate cancer Paternal Grandfather Relation Status Comments Father Alive Mother Alive Paternal Grandfather Sister 1 Alive Sister 2 Alive Social History Tobacco Use Types Packs/Day Years Used Date Smoking Tobacco: Former Cigarettes 1 15 1 2010 Smokeless Tobacco: Never Tobacco Cessation:Counseling Given: Not Answered Alcohol Use Standard Drinks/Week Comments Yes 2 (1 standard drink = 0.6 oz pur e alcohol) Child or Family Care Answer Date Record ed Do you have problems with on e of the following making it difficult for you to work, study, or receive health care? I choose not to answer 10/05/2022 Education Answer Date Recorded Are you interested in more education? Not on marcelo e 10/05/2024 Are you concerned about learning? Not on file 10/05/2024 No 10/05/2024 No 10/05/2024 Food Answer Date Recorded Within the past 6 months we worried whether our food would run out before we got money to buy more. I choose not to answer 10/05/2022 Within the past 6 months the food we bought just didn't last and we didn't have enough money to get more. I choose not to answer 10/05/2022 Residential Stability Answer Date Recor ded What is your housing situation today? I choose n ot to answer 10/05/2022 How many times have you move d in the past 12 months? I choose not to answer 10/05/2022 Paying for Meds Answer Date Recorded Do you have trouble paying for medicines? I gladys se not to answer 10/05/2022 Paying Utility Bills Answer Date Record ed Do you have trouble paying y our heating or electricity bill? I choose not to answer 10/05/2022 Transportation Answer Date Recorded Has the lack of transportati on kept you from medical appointments or from getting medications? I choose not to answer 10/05/2022 Unemployment Answer Date Recorded Are you currently unemployed or working on a part-time or temporary basis, and looking for work? I choose not to answer 10/05/2022 Digital Access Answer Date Recorded No 01/20/2023 No 01/20/2023 Reliable internet access at home? Not on file 01/20/2023 Device with a working camera? Not on file Intimate Partner Violence Answer Date R ecorded Denied Basic Needs Not on file 07/12/2025 In the past 12 months have y ou been in a relationship with a person who hurts, threatens, or tries to control you? Deferred 07/12/2025 Worried food would run out Not on file 07/12 In the past 12 months have y ou been in a relationship with a person who hurts, threatens, or tries to control you? 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 Not on file Not on file Not on file Last Filed Vital Signs Vital Sign Reading Time Taken Comments Blood Pressure 110/82 07/13/2025 3:17 PM EST Pulse 79 07/13/2025 3:17 PM EST Temperature 37.3 C (99.2 F) 07/13/2025 3:17 PM EST Respiratory Rate 16 07/13/2025 3:17 PM EST Oxygen Saturation 95% 07/13/2025 3:17 PM EST Inhaled Oxygen Concentration - - Weight 211.4 kg (466 lb) 07/13/2025 3:17 PM EST Height 186 cm (6' 1.23 ) 07/13/2025 3:17 PM EST Body Mass Index 61.1 07/13/2025 3:17 PM EST Plan of Treatment Upcoming Encounters Date Type Department Care Team (Late st Contact Info) Description 01/11/2026 1:30 PM EDT Office Visit [facility] [address] [place] [address] Alexander Leslie MD [address] [place] [address] [email or web address] Health Maintenance Due Date Last Done Comments COLOGUARD 2006 FIT TEST 2006 FOBT 2006 SIGMOIDOSCOPY 2006 VIRTUAL COLONOSCOPY 2006 RSV VACCINE (1 - Risk 50-74 years 1-dose series) 2011 ZOSTER VACCINES (1 of 2) 2011 Adult Td,Tdap Booster 07/30/2021 07/30/2011 COLONOSCOPY 10/28/2021 10/29/2011 COLORECTAL CANCER SCREENING 10/28/2021 CREATININE LEVEL 08/19/2024 08/19/2023, , 07/25/2023, Additional history exists POTASSIUM LEVEL 08/19/2024 08/19/2023, 04/25, 03/25/2023, Additional history exists COVID-19 VACCINE ( season) 2025 12/04/2021, 07/09/2021, 11/27/2020, Additional history exists SCREENING FOR DIABETES 06/24/2025 06/24/2022, 2021 BLOOD PRESSURE 01/10/2026 07/13/2025 DEPRESSION SCREENING 07/12/2026 07/12/2025 LIPID PANEL 10/01/2026 10/01/2021, 02/2022, 08/06/2019, Additional history exists SMOKING STATUS SCREENING (Every 5 Years) 07/13/2030 07/13/2025 HIV ONE-TIME SCREENING (18-65 YEARS) Completed 08/06/2019 PNEUMOCOCCAL VACCINES (50+ years) Completed 06/21/2022, 07/25/2011, 06/25/2009 HEPATITIS C SCREENING Completed 07/25/2023 , 07/25/2023, 08/06/2019 INFLUENZA VACCINE Completed 07/13/2025, , 06/21/2022, Additional history exists HEPATITIS A VACCINES Aged Out No long er eligible based on patient's age to complete this topic HIB VACCINES Aged Out No longer eligi ble based on patient's age to complete this topic MENINGOCOCCAL VACCINES (ACWY) Aged Out No longer eligible based on patient's age to complete this topic MENINGOCOCCAL VACCINES (B) Aged Out N o longer eligible based on patient's age to complete this topic Medical Devices Not on file Procedures Procedure Name Priority Date/Time Associated Diagnosis Comments OUTSIDE IMAGING Routine 07/13/2025 3:59 PM EST OUTSIDE LAB Routine 07/13/2025 3:59 PM EST COMPREHENSIVE METABOLIC PANEL (CMP) Routine 08/19/2023 1:10 PM EST Polycythemia vera Benign essential hypertension Liver function abnormality OUTSIDE POTASSIUM LEVEL Routine 08/19/2023 HEPATITIS C ANTIBODY, QUALITATIVE Routine 07/25/2023 11:38 AM EST Liver function abnormality LIPID PANEL Routine 10/01/2021 12:01 PM EST Essential hypertension Mixed hyperlipidemia HM COLONOSCOPY FOR RESULT ENTRY ONLY Routine 10/29/2011 from Last 3 Months or Most Recently Relevant to Health Maintenance Results * Outside Imaging Report Only (07/13/2025 3:59 PM EST) Historical Provider IMG XR CHEST Final Res ult * Outside Lab (Non-MGB) (07/13/2025 3:59 PM EST) Historical Provider LAB BLOOD BKR ORDERABLES Final Result * Comprehensive metabolic panel (08/19/2023 1:10 PM EST) Blood Alexander Leslie MD LAB BLOOD BKR ORDERABLES Tamara l Result Performing Organization Address City/[facility]/ZIP Co de Phone Number [address] [address] * Outside Potassium Level (08/19/2023) Potassium level - External 4.0 3.4 - 5.0 mmol/L Result [facility] Provider LAB BLOOD ORDERABLES Tamara l Result * Hepatitis C antibody, qualitative (07/25/2023 11:38 AM EST) Blood Alexander Leslie MD LAB BLOOD BKR ORDERABLES Tamara l Result Performing Organization Address City/[facility]/ZIP Co de Phone Number [address] [address] * Lipid panel (10/01/2021 12:01 PM EST) HDL 42 mg/dL [facility] Comment: Interpretation <40 mg/dL: Low HDL cholesterol (major risk factor for CHD) Greater than or equal to 60 mg/dL: High HDL cholesterol ( negative risk factor for CHD) HDL - cholesterol is affected by a number of factors, e.g. smoking, excerise, hormones, sex and age. CHOLESTEROL 180 0 - 240 mg/dL [facility] TRIGLYCERIDES 136 30 - 160 mg/dL [facility] LDL 111 50 - 129 mg/dL [facility] Comment: LDL levels in terms of risk for coronary heart disease: <100 mg/dL: Optimal 100-129 mg/dL: Near or above optimal 130-159 mg/dL: Borderline high 160-189 mg/dL: High >190 mg/dL: Very High CARDIAC RISK RATIO 4.3 3.4 - 5.0 C [facility] Blood 10/01/2021 12:0 1 PM EST 10/01/2021 12:06 PM EST Alexander Leslie MD LAB BLOOD BKR ORDERABLES Tamara l Result Performing Organization Address City/State/[facility] Co de Phone Number [address] [address] * COLONOSCOPY FOR RESULT ENTRY ONLY (10/29/2011) Colonoscopy normal colon Historical Provider HEALTH MAINTENANCE Final Result from Last 3 Months or Most Recently Relevant to Health Maintenance Insurance [facility] PPO [facility] OUT OF [facility]PO [facility] PPO [facility] OUT OF STATE PPO [place] [facility] OUT OF STATE PPO [facility] OUT [facility] PPO [employer] OUT OF STATE PPO [facility] PPO Care Teams Technical Training Coordinator Relationship Specialty Start Date End Date Alexander Leslie MD [address] [place] [address] PCP - General Internal Medicine 07/15/17 Alexander Leslie MD [address] [place] [address] Historical LMR Provider 06/15/17 Sam Crowe MD [address] [facility] [place] [address] Hospitalist 01/10/20 Alexander Leslie MD [address] [place] [address] Insurance Assigned Provider 03/05/25 Additional Source Comments The information contained in this document represents components of the legal health record. It is not the complete legal health record.[facility]
--- OUTSIDE RECORDS SUMMARY | 2025-08-12 16:06 | XMS_ITS | Encounter Summary ---
Author Organization [facility] Address [address] [place] [address] Phone Care Team Providers Care Trimmer Sawyer Name Role Phone Alexander Leslie MD Unavailable [phone] Alexander Leslie MD Primary Care Provider [phone] Sam Crowe MD Unavailable [phone] Alexander Leslie MD Unavailable [phone] Encounter Details Date Type Department Care Team (Late st Contact Info) Description 07/13/2025 Orders Only [facility] [address] [place] [address] Provider, MD Waqar [address] [place] [address] Social History Tobacco Use Types Packs/Day Years Used Date Smoking Tobacco: Former Cigarettes 1 15 - 2010 Smokeless Tobacco: Never Alcohol Use Standard Drinks/Week Comments Yes 2 [...] Job Start Date Job End 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 Not on file Not on file documented as of this encounter Plan of Treatment Upcoming Encounters Date Type Department Care Team (Late st Contact Info) Description 01/11/2026 1:30 PM EDT Office Visit [facility] [address] [place] [address] Alexander Leslie MD [address] [place] [address] documented as of this encounter Procedures Procedure Name Priority Date/Time Associated Diagnosis Comments OUTSIDE IMAGING Routine 07/13/2025 3:59 PM EST OUTSIDE LAB Routine 07/13/2025 3:59 PM EST documented in this encounter Results * Outside Imaging Report Only (07/13/2025 3:59 PM EST) Historical Provider IMG XR CHEST Final Res ult * Outside Lab (Non-MGB) (07/13/2025 3:59 PM EST) Historical Provider LAB BLOOD BKR ORDERABLES Final Result documented in this encounter Visit Diagnoses Not on filedocumented in this encounter Additional Health Concerns Assessment Noted Time PHQ-2 Depression Total Score: 0 07/12/20 25 5:54 PM EST documented as of this encounter Care Teams Trimmer Sawyer Relationship Specialty Start Date End Date Alexander Leslie MD [address] [place] [address] PCP - General Internal Medicine 07/15/17 Alexander Leslie MD [address] [place] [address] Historical LMR Provider 06/15/17 Sam Crowe MD [address] [facility] [place] [address] Hospitalist 01/10/20 Alexander Leslie MD [address] [place] [address] Insurance Assigned Provider 03/05/25 documented as of this encounter Additional Source Comments The information contained in this document represents components of the legal health record. It is not the complete legal health record.[facility]
--- OUTSIDE RECORDS SUMMARY | 2025-08-12 16:07 | XMS_ITS | Encounter Summary ---
Author Organization [facility] Address [address] [place] [address] Phone Care Team Providers Care Agricultural Labor Camp Manager Name Role Phone Alexander Leslie MD Unavailable [phone] Alexander Leslie MD Primary Care Provider [phone] Sam Crowe MD Unavailable [phone] Alexander Leslie MD Unavailable [phone] Brooklyn Davidson RN Unavailable [phone] Alexander Leslie MD Unavailable [phone] Encounter Details Date Type Department Care Team (Late st Contact Info) Description 12/27/2021 Procedure Pass OR Admitting Dept - Virtual Department [address] [place] [id number] Social History Tobacco Use Types Packs/Day Years Used Date Smoking Tobacco: Former Cigarettes 1 15 1 996 - 2010 Smokeless Tobacco: Never Alcohol Use Standard Drinks/Week Comments Yes 7 (1 standard drink = 0.6 oz pur e alcohol) Child or Family Care Answer Date Record ed Do you have problems with on e of the following making it difficult for you to work, study, or receive health care? I choose not to answer 01/29/2021 Education Answer Date Recorded Are you interested in help w ith more adult education (for example, completing high school, GED, job training, learning the [place]cuad[place] language, technical skills, or developing parenting skills)? I choose not to answer 01/29/2021 Are you concerned about learning? Not on file 01/29/2021 Not on file 01/29/2021 Not on file 01/29/2021 Food Answer Date Recorded Within the past 6 months we worried whether our food would run out before we got money to buy more. I choose not to answer 01/29/2021 Within the past 6 months the food we bought just didn't last and we didn't have enough money to get more. I choose not to answer 01/29/2021 Paying for Meds Answer Date Recorded Do you have trouble paying for medicines? I gladys se not to answer 01/29/2021 Paying Utility Bills Answer Date Record ed Do you have trouble paying y our heating or electricity bill? I choose not to answer 01/29/2021 Transportation Answer Date Recorded Has the lack of transportati on kept you from medical appointments or from getting medications? 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 Not on file Not on file documented as of this encounter Plan of Treatment Upcoming Encounters Date Type Department Care Team (Late st Contact Info) Description 01/11/2026 1:30 PM EDT Office Visit [facility] [address] [place] [address] Alexander Leslie MD [address] [place] [address] documented as of this encounter Visit Diagnoses Not on filedocumented in this encounter Additional Health Concerns Assessment Noted Time PHQ-2 Depression Total Score: 0 09/30/19 22 11:13 AM EST documented as of this encounter Care Teams Agricultural Labor Camp Manager Relationship Specialty Start Date End Date Alexander Leslie MD [address] [place] [address] PCP - General Internal Medicine 07/15/17 Alexander Leslie MD [address] [place] [address] Historical LMR Provider 06/15/17 Sam Crowe MD [address] [facility] [place] [address] Hospitalist 01/10/20 Alexander Leslie MD [address] [place] [address] Insurance Assigned Provider 11/29/23 01/01/25 Brooklyn Davidson, RN [address] [place] [address] [facility] Editor [employer] Aide Tech 03/24/23 04/06/23 Alexander Leslie MD [address] [place] [address] Insurance Assigned Provider 03/05/25 documented as of this encounter Additional Source Comments The information contained in this document represents components of the legal health record. It is not the complete legal health record.[facility]
== END 2025-08-12 14:47 | disposition home or self-care (01) ==
LOC: HO.BBR 14:46
PROVIDERS: PCP Internal Medicine; Visit Provider Internal Medicine
DX: D45 Polycythemia vera (principal)
CPT/HCPCS: 36415; 85018; 85025; 99195